=== PATIENT | female | born 1960 | race Caucasian/White ===

== ENCOUNTER → 2024-04-25 07:35 | Outpatient (REF) | payer BC, SELFPAY | LOC: MRI 07:35 | PROVIDERS: ATTENDING PHYSICIAN Internal Medicine | DX: G44.041 Chronic paroxysmal hemicrania, intractable (principal) | CPT/HCPCS: 70544; 70553; A9575 ==

== ENCOUNTER → 2024-11-29 08:02 | Outpatient (REF) | payer BC, SELFPAY | LOC: WDC 08:02 | PROVIDERS: ATTENDING PHYSICIAN Internal Medicine | DX: Z12.31 Encounter for screening mammogram for malignant neoplasm of breast (principal) | CPT/HCPCS: 77063; 77067 ==

== ENCOUNTER 2025-07-21 11:42 | Emergency (ER) | payer BC, SELFPAY ==
[2025-07-21] VITALS (9 sets, daily range): BP systolic 145–178; BP diastolic 70–92; PULSE 64–72
[2025-07-21 11:55] LABS: Glucose - Point of Care 98 mg/dl (70-99)
[2025-07-21 12:23] LABS: Hematocrit 41.8 % (37.0-47.0); Hemoglobin 14.1 g/dL (12.0-16.0); Mean Corp Hgb Conc. 33.7 g/dL (33.0-37.0); Mean Corpuscular Volume 90.5 fL (81.0-99.0); Nucleated Red Blood Cells % 0 %; Platelet Count 209 10^3/uL (130-400); Red Cell Dist. Width 12.6 % (11.5-14.5)
[2025-07-21 12:34] LABS: ALT (SGPT) 38 U/L (0-35); AST (SGOT) 29 U/L (14-36); Albumin 4.7 g/dl (3.5-5.0); Alkaline Phosphatase 81 U/L (38-126); Blood Urea Nitrogen 19 mg/dl (7-17); Calcium 9.6 mg/dl (8.4-10.2); Carbon Dioxide 27 mmol/L (22-30); Chloride 104 mmol/L (98-107); Glucose 101 mg/dl (70-99); Potassium 3.9 mmol/L (3.5-5.1); Sodium 137 mmol/L (135-145); Total Protein 7.5 g/dl (6.3-8.2); eGFR > 60.00
--- NOTE | 2025-07-21 14:15 | ED.GENMED ---
History of Present Illness
<Chey Greene NP - Last Filed: 07/21/25 16:42>
General
Chief Complaint: Fainting/Passed Out
Source: patient
Exam Limitations: none
Time Seen by Provider: 07/21/25 14:06
Nursing documentation reviewed up to this point in time: agreed with
History of Present Illness
History of Present Illness:
Patient to ED with complaint of near syncopal event. States she was sitting at her computer participating in a teleconference when her heart starting pounding, developed tightness in neck, and felt like she was going to pass out. Heart pounding
lasted approx 15 sec. She states she continues to feel lightheaded when she stands. +nausea. No cp/pressure, no SOB. No prior history of same. Brought to ED by spouse for eval.
Past History
<Chey Greene NP - Last Filed: 07/21/25 16:42>
Past History
ED Past Medical History: GERD, HTN, Hypercholesterolemia and Psychiatric (Anxiety)
ED Past Surgical History: Cholecystectomy and Gynecological (Lumpectomy)
Social History
Tobacco: Non-smoker
Alcohol: Occasional
Living: with family
Review of Systems
<Chey Greene NP - Last Filed: 07/21/25 16:42>
Review of Systems
Allergies reviewed?: Yes
All Other Systems: ROS reviewed and negative except as documented in HPI and ROS
Constitutional: Reports no symptoms
EENT: Reports no symptoms
Respiratory: Reports no symptoms
Cardiac: Reports no symptoms
ABD/GI: Reports nausea
: Reports no symptoms
Musculoskeletal: Reports no symptoms
Skin: Reports no symptoms
Neurological: Reports weakness and other (lightheaded)
Psychiatric: Reports no symptoms
Phy Exam
<Chey Greene NP - Last Filed: 07/21/25 16:42>
General Physical Exam
General Presentation: well appearing and mild distress
General age: appears stated age
General Skin: warm and dry
General Habitus: normal
General Mental: alert
Cardiovascular Exam
Cardiovascular Exam: regular rate/rhythm and no edema
Pulmonary Exam
Pulmonary Exam: lungs clear and no respiratory distress
Musculoskeletal Exam
Musculoskeletal Exam: full ROM and neuro vasc intact
Skin Exam
Skin Exam: normal color, warm/dry and no rash
Psychiatric Exam
Psychiatric Exam: normal mood/affect
Course
<Chey Greene NP - Last Filed: 07/21/25 16:42>
Orders/Labs/Results
Orders:
Orders
07/21/25 11:45
EKG [Electrocardiogram (*1)] Urgent
Reason for Study: Syncope
EKG- Treatment ONCE
07/21/25 11:47
Electrocardiogram (*1) Urgent
Reason for Study: Chest Pain
EKG- Treatment ONCE
07/21/25 11:57
Complete Blood Count/With Diff Urgent
Comprehensive Metabolic Panel Urgent
Magnesium Urgent
Comment: ADD ON
TSH Reflex To Free T4 Urgent
Comment: ADD ON
07/21/25 14:14
Orthostatic VS- Treatment ONCE
07/21/25 14:21
Troponin I Urgent
07/21/25 15:27
Add On- LAB Urgent
Tests Added?: magnesium, TSH reflex free T4
Abnormal Lab Results
07/21/25
11:57
BUN 19 H mg/dl
(7-17)
Glucose 101 H mg/dl
(70-99)
ALT 38 H U/L
(0-35)
07/21/25 11:57
07/21/25 11:57
Vital Signs
Initial and Last Documented VS:
Initial Vital Signs
Temp Pulse Resp BP Pulse Ox
97.5 F 62 20 178/87 98
07/21/25 11:45 07/21/25 11:45 07/21/25 11:45 07/21/25 11:45 07/21/25 11:45
Last Documented Vital Signs
Temp Pulse Resp BP Pulse Ox
97.5 F 61 16 147/75 95
07/21/25 11:45 07/21/25 16:15 07/21/25 16:15 07/21/25 16:00 07/21/25 14:22
<Davie De Anda MD - Last Filed: 07/21/25 16:14>
Orders/Labs/Results
Orders:
Orders
07/21/25 11:45
EKG [Electrocardiogram (*1)] Urgent
Reason for Study: Syncope
EKG- Treatment ONCE
07/21/25 11:47
Electrocardiogram (*1) Urgent
Reason for Study: Chest Pain
EKG- Treatment ONCE
07/21/25 11:57
Complete Blood Count/With Diff Urgent
Comprehensive Metabolic Panel Urgent
Magnesium Urgent
Comment: ADD ON
TSH Reflex To Free T4 Urgent
Comment: ADD ON
07/21/25 14:14
Orthostatic VS- Treatment ONCE
07/21/25 14:21
Troponin I Urgent
07/21/25 15:27
Add On- LAB Urgent
Tests Added?: magnesium, TSH reflex free T4
Abnormal Lab Results
07/21/25
11:57
BUN 19 H mg/dl
(7-17)
Glucose 101 H mg/dl
(70-99)
ALT 38 H U/L
(0-35)
07/21/25 11:57
07/21/25 11:57
Vital Signs
Initial and Last Documented VS:
Initial Vital Signs
Temp Pulse Resp BP Pulse Ox
97.5 F 62 20 178/87 98
07/21/25 11:45 07/21/25 11:45 07/21/25 11:45 07/21/25 11:45 07/21/25 11:45
Last Documented Vital Signs
Temp Pulse Resp BP Pulse Ox
97.5 F 61 16 147/75 95
07/21/25 11:45 07/21/25 16:15 07/21/25 16:15 07/21/25 16:00 07/21/25 14:22
<Chey Greene NP - Last Filed: 07/21/25 16:42>
*Pulse Oximetry
SaO2: 97
Oxygen Mode of Delivery: Room air
Patient hypoxic: no
*EKG
Interpretation: normal
Rate: normal
Rhythm: sinus
*Critical Care Note
Total Time (30-74mins, 75-104mins- exclusive of procedures): Not Applicable
<Chey Greene NP - Last Filed: 07/21/25 16:42>
Update Note
Update Note:
Patient to department after a near syncopal event this morning while sitting at her computer participating in a teleconference. She reported a brief episode where her heart was pounding, tightness in her throat. Since arriving in the emergency
department she has remained asymptomatic. VSS. She remains afebrile. Negative tilt. Physical exam unremarkable. EKG reviewed NSR. She has had episodes of A-fib in the past. She reports that the A-fib will give her similar symptoms. No
evidence of A-fib on exam today. Case discussed with Dr. De Anda. Will discharge home today, close follow-up with PCP. Recommend Holter monitor. Discussed plan with patient and she is agreeable. She was given instructions on signs and symptoms to
return to the emergency department and she is agreeable to this plan
ED Attending Note
<Chey Greene NP - Last Filed: 07/21/25 16:42>
-
Portions of this chart may have been created with voice recognition software.� Occasional wrong word or��sound alike� substitutions may have occurred due to the inherent limitations of voice recognition software.
<Davie De Anda MD - Last Filed: 07/21/25 16:14>
ED Attending Note
Patient seen and examined by attending physician: Yes
I performed the substantive portion of visit, reviewed & personally made and approve the management plan that is documented in note by myself or ROSHAN.: Yes
ED Attending Note:
I have seen and evaluated the patient with a [id number] encounter. I have spoken to the [ROSHAN] and involved in the medical history, the physical exam, medical decision making.
Evaluation and management service: agree unless noted differently below.
Results interpretation: agree unless noted differently below.
Patient is a 64-year-old woman presenting to the emergency department a near syncopal event. Patient states that she was sitting at her computer starting getting palpitations some tightness in her neck and the thought that she was going to pass
out. This only lasted 15 seconds. She denies any complaints currently. She does state that this has happened to her before though not to this extent. No chest pain. No shortness of breath. No vomiting. No history of thyroid problems. No
history of blood clots. No long car rides or plane rides. Has never had a Holter monitor completed before. During my evaluation patient is resting comfortably. She is in a regular rate and rhythm. She does not have any leg swelling. Will check
blood work including magnesium and thyroid. EKG per my interpretation normal sinus rhythm. Patient had no events on the monitor during my evaluation. Likely anticipate discharge if blood work is unremarkable with outpatient monitoring.
Discharge Plan
Departure
Patient Disposition: Home (Routine Discharge)
Date of Disposition: 07/21/25
Time of Disposition: 16:37
Patient with high blood pressure during this ER visit?: No
Condition: Good
Covid-19: Not Applicable
Discharge Problem:
Near syncope
Instructions: Syncope (Fainting) (DC)
Prescriptions:
No Action
omeprazole [Prilosec] 10 MG capsule,delayed release(DR/EC)
10 mg PO DAILY
Patient Comments:
states she takes this intermittantly
sulfamethoxazole-trimethoprim 1 TABLET tablet
1 tab PO BID Qty: 14 0RF
amlodipine 5 MG tablet
5 mg PO DAILY Qty: 30 0RF
Referrals:
Blas Mosley DO [Family Provider, Internal Medicine] - Tomorrow
Activity Restrictions/Additional Instructions:
Return to the emergency department for any changes in/worsening of your symptoms.
Interventions
Interventions:
*Risk Screen - Suicide Last Done: 07/21/25 11:45
*General Assessment Last Done: 07/21/25 11:45
*Neglect/Abuse Screening Last Done: 07/21/25 11:45
*ED- Fall Risk Assessment Last Done: 07/21/25 13:45
*ED COVID-19 Vaccine History Last Done: 07/21/25 13:45
*ED Influenza Vaccine History Last Done: 07/21/25 13:45
ED- Cardiac Assessment Last Done: 07/21/25 13:53
ED- Neurological Assessment Last Done: 07/21/25 13:51
Discharge Date and Time
Print Language: NIGERIEN
[2025-07-21 14:50] LABS: Troponin I < 0.012 ng/ml
[2025-07-21 16:01] LABS: Magnesium 2.3 mg/dl (1.6-2.3)
== END 2025-07-21 16:45 | disposition home or self-care (01) ==
LOC: EMR 11:42
PROVIDERS: Emergency Medicine; Nurse Practitioner; EMERGENCY PHYSICIAN Student in an Organized Health Care Education/Training Program; FAMILY PHYSICIAN Internal Medicine
DX: R55 Syncope and collapse (principal); I10 Essential (primary) hypertension; E78.00 Pure hypercholesterolemia, unspecified; K21.9 Gastro-esophageal reflux disease without esophagitis; F41.9 Anxiety disorder, unspecified
CPT/HCPCS: 99284; 80053; 82962; 83735; 84443; 84484; 85025; 93005

== ENCOUNTER → 2025-07-27 13:44 | Outpatient (REF) | payer BC, SELFPAY | LOC: RCS 13:44 | PROVIDERS: ATTENDING PHYSICIAN Nurse Practitioner Adult Health | DX: R55 Syncope and collapse (principal); R00.2 Palpitations | CPT/HCPCS: 93225; 93226 ==